=== PATIENT | female | born 1990 | race Hispanic/Latino ===

== ENCOUNTER 2018-02-26 10:45 | Emergency (ER) | payer MEDICAID ==
[2018-02-26 11:23] VITALS: BMI 31.5
--- NOTE | 2018-02-26 13:07 | US ---
PROCEDURE: HISTORY: LMP 06/05/2007 vaginal spotting COMPARISON: None TECHNIQUE: Transabdominal scanning of the maternal pelvis and a 2nd/ 3rd trimester with image documentation FINDINGS: Fetus: Single intrauterine gestation heart rate: Present at 134 beats per minute presentation: Cephalic Placenta: Anteriorwithout previa or abruption Amniotic fluid : Normal appearin.58 anatomy: Limited due to late gestation. biometrics: Gestational age by ultrasound: 36 weeks 3 days 2 weeks 4 days. Estimated date of delivery by ultrasound 03/23/2018 Estimated weight: 2980g 447 g Please note that the femur lengths are averaging approximately 32 weeks 4 days in contrast to the head circumference/BPD is of approximately 37 weeks 3 to 4 days and an abdominal circumference of 38 weeks 0 days. Correlation with parent height status recommended. Maternal factors: Uterus: Unremarkable. No myometrial masses Cervix:3.9 cm length Free fluid: None Biophysical profile: Breathin Gross body movements: 2 Limb tone: 2 Amniotic Fluid: 2 Total biophysical profile: 04/30 IMPRESSION: Single intrauterine gestation - 36 weeks 3 days 2 weeks 4 days. ; with normal cardiac activity. presentation - cephalic. No previa . Biophysical profile 04/30 Please note that the femur lengths are averaging approximately 32 weeks 4 days in contrast to the head circumference/BPD is of approximately 37 weeks 3 to 4 days and an abdominal circumference of 38 weeks 0 days. Correlation with parent height status recommended.
[2018-02-26 19:51] VITALS: BP 118/68; PULSE 97; O2SAT 99
--- NOTE | 2018-02-27 07:30 | OBHP ---
Datetime: 02/26/2018 11:37 IP Adm Impression: Term, intrauterine ; No Active Labor; Intact Membranes IP Admit Plan: Observation/Evaluation; Discharge home Admit Comment, IP Provider: 27 yo with IUP at 38.0 weeks present c/o blood clot that she not ice today at 4:00 am when she went to pee. Denies ctx, lof. +FM. Also states that around 9 am started with pinky vginal discharge that stoed on its own. Denies any urinary symptoms, abd pain. Patient re ports that back on Junuary she was told having palcenta previa, but last US yesterday she was told ev erything is fine. No complete records with her. PNC: Dr Pablo. OBH: x1 2009. MANAGER COLLECTION: denies std PMH: MTHFR gene mut. FMH: denies MEDS: ASA, Folic acid, PNV. NKDA. SH: denies. PE: see PE comments A/P:27 yo with IUP at 38.0 weeks with bloody discharge. -Observation/eavluation -BPP -/maternal monitoring. - Reeval: patients feels comfortable, denies abd pain or discharge at this time. BPP 8/8, no previa or abruption. - d/c home - ER precautions reviewed. Case seen and examined with Dr Jaimes. Jayson PGY 1. Patient was seen with the resident I agree with note Pelvic Type - PN: Adequate Extremities - PN: Normal Abdomen - PN: Normal Back - PN: Normal Breast - PN: Not Done Lungs - PN: Normal Heart - PN: Normal Thyroid - PN: Not Done Neurologic - PN: Normal HEENT - PN: Normal General - PN: Normal FHR - Baseline A Provider: 150 Membranes, Provider: Intact Contraction Comments Provider: quiet Comments, ACOG Physical Exam: SPECULUM: negative for bleeding, cervix closed. VE: cervix closed, long, no blood noted. EGA AdmitDate IP: 38.0 Vital Signs Provider: Reviewed; Within Normal Limits IP Chief Complaint: Vaginal bleeding NICHD Variability Prov Fetus A: Moderate 6-25bpm NICHD Accel Fetus A IP Provider: 15X15 FHR Category Provider Fetus A: Category I NICHD Decel Fetus A IP Provider: None Dilatation, Provider: 0 Effacement, Provider: 0 Station, Provider: -2 Genitourinary Exam: Normal DTRs - PN: Not Done (Annotations: Data stored by CPN on behalf of user)
== END 2018-02-26 13:45 | disposition home or self-care (01) ==
LOC: H.EROB2 10:45 → H.L&D 11:25 → H.EROB2 13:45
DX: O26.853 Spotting complicating pregnancy, third trimester (principal); Z3A.38 38 weeks gestation of pregnancy

== ENCOUNTER 2018-03-15 03:04 | Inpatient (IN) | payer MEDICAID ==
[2018-03-15 03:33] VITALS: BMI 31.8
[2018-03-15] MEDS ORDERED: Lactated Ringer's 1,000 ML IV SCH ×3 (03:45→09:00)
[2018-03-15] MEDS: Lactated Ringer's 1,000 ML IV SCH ×2 (03:45→04:45)
--- NOTE | 2018-03-15 03:45 | OBADHP ---
Datetime: 03/15/2018 03:33 Admit Comment, IP Provider: 27yo with IUP at 40.2 wks presents here today c/o SROM and contr action pain which started about 3 hours ago. Pelvic pain on a scale of 8/10. She denies any VB and fe els good movem,ents. PNC with the [facility][ O :Pt looks well Heart - RRR Chest: CTA B/L FHR - 130, regular [place]: Irregular Speculum Exam: Gross pooling, Nitrazine positive SVE: 3/50/-3, Vtx Assessment: IUP at Term, SROM GBS Negative. Active Labor Plan: Admit to LND Monitor the progress of labor. Pelvic Type - PN: Adequate Extremities - PN: Normal Abdomen - PN: Normal Back - PN: Normal Breast - PN: Normal Lungs - PN: Normal Heart - PN: Normal Thyroid - PN: Normal Neurologic - PN: Normal HEENT - PN: Normal General - PN: Normal Presentation-Admit: Vertex FHR - Baseline A Provider: 130 Membranes, Provider: Ki Charles ACOG Physical Exam: Abd: Soft, Nt , BS - present Speculum exam: Gross pooling, Nitrazine test - Positive Gestation - Est Wks by US: 40.2 Pool Provider: Positive Nitrazine Provider: Positive Vital Signs Provider: Reviewed IP Chief Complaint: Uterine contractions; Suspected ruptured membranes; Maternal discomfort NICHD Variability Prov Fetus A: Moderate 6-25bpm NICHD Accel Fetus A IP Provider: [id number] FHR Category Provider Fetus A: Category I NICHD Decel Fetus A IP Provider: None Dilatation, Provider: 3 Effacement, Provider: 50 Station, Provider: -2 Genitourinary Exam: Normal DTRs - PN: Normal EGA AdmitDate IP: 40.3 IP Adm Impression: Term, intrauterine ; Active labor; Ruptured Membranes IP Admit Plan: Admit to unit; Initiate labor protocol Datetime: 02/26/2018 11:37 Contraction Comments Provider: quiet
[2018-03-15 03:55] LABS: BASO # 0.1 K/uL (0.0-0.2); BASO % 0.9 % (0.0-2.0); EOS # 0.1 K/uL (0.0-0.7); EOS % 1.3 % (0.0-4.0); HEMOGLOBIN 12.1 g/dL (12.0-16.0); LYMPH # 2.6 K/uL (1.0-4.3); LYMPH % 31.3 % (20.0-40.0); MEAN CORPUSCULAR HEMOGLOBIN 31.8 pg (27.0-31.0); MEAN CORPUSCULAR HGB CONC 35.7 g/dL (33.0-37.0); MEAN PLATELET VOLUME 10.4 fl (7.2-11.7); MONO # 0.8 K/uL (0.0-0.8); NEUT # 4.9 K/uL (1.8-7.0); NEUT % 57.5 % (50.0-75.0); NRBC % 0.2 % (0.0-0.0); RBC 3.82 Mil/uL (3.80-5.20); RED CELL DISTRIBUTION WIDTH 12.7 % (11.5-14.5); WHITE BLOOD COUNT 8.5 K/uL (4.8-10.8)
[2018-03-15] MEDS ORDERED: Fentanyl/Bupivacaine HCl 250 ML EPI ONE (06:20)
[2018-03-15 06:30] VITALS: O2SAT 100
[2018-03-15] MEDS ORDERED: Oxytocin 30 units/LR 500ML 30 U/500 ML BAG IV ONE (08:52)
[2018-03-15] MEDS ORDERED: Oxycodone/Acetaminophen 5/325 mg Tab PO PRN (10:20)
[2018-03-15] MEDS ORDERED: Benzocaine/Menthol SPRAY TOP PRN (10:20)
--- NOTE | 2018-03-15 10:25 | OBDS ---
MATERNAL INFORMATION Delivery Anesthesia: Epidural Provider Comments: Pt was fully dilated and was pushing. A viable male with BW of 3405gms and scores of 9/9 was delivered over a small 2nd degree laceration at the posterior fauchette in t he DAT position. The laceration was repaired with good cosmesis. There was a loose nuchal cord X1. EBL - 250mls Patient tolerated the procedure well. LABOR SUMMARY EDC: 03/12/2018 00:00 No. Babies in Womb: 1 Attempted: No Labor Anesthesia: Epidural LABOR INFORMATION Reason for Induction: Not Applicable Onset of Labor: 03/14/2018 19:30 Complete Dilatation: 03/15/2018 09:10 Oxytocin: N/A Group B Beta Strep: Negative Antibiotics # of Doses: 0 Antibiotics Time of Last Dose: 0 Steroids Given: None Reason Steroids Not Administered: Not Applicable MEMBRANES Membranes Rupture Method: Spontaneous Rupture of Membranes: 03/14/2018 19:30 Amniotic Fluid Color: Clear Amniotic Fluid Amount: Moderate Amniotic Fluid Odor: Normal STAGES OF LABOR Stage 1 hrs: 13 Stage 1 min: 40 VAGINAL DELIVERY Episiotomy: None Laceration Extension: Second Degree Laceration Type: Perineal Sponge Count Correct: Yes Sharps Count Correct: Yes PRESENTATION/POSITION BABY A Presentation: Cephalic IDENTIFICATION/MEDS BABY A ID Band Number: [id number]
[2018-03-16 07:26] LABS: HEMOGLOBIN 9.9 g/dL (12.0-16.0); MEAN CORPUSCULAR HEMOGLOBIN 31.7 pg (27.0-31.0); MEAN CORPUSCULAR HGB CONC 34.8 g/dL (33.0-37.0); RBC 3.12 Mil/uL (3.80-5.20); WHITE BLOOD COUNT 9.8 K/uL (4.8-10.8)
[2018-03-16] MEDS: Multivitamin With Minerals Tab PO SCH (09:18)
--- NOTE | 2018-03-16 10:36 | OBPPN ---
Datetime: 03/16/2018 09:48 PP Pain Prov: Within normal limits PP Nausea Prov: Denies PP Flatus Prov: Yes PP BM Prov: No PP Impression Prov: Normal progression PP Plan Prov: Continue present management PP Progress Note Prov: S: 27 y/o female s/p on 03/15/18 evaluated on PPD1. Pt was seen and examined at bedside this AM. No overnight events. Reports mild abdominal pain, but well controll ed with pain meds. Ambulating. Breast feeding (with formula supplementation) without difficulty. [place] is similar to menses volume. +Flatus/-BM. Denies fever/chills, diarrhea, nausea/vomiting, chest p ain, dyspnea, and dizziness. Pt desires circumcision for baby. O: Vitals stable overnight, 1 episodes of tachycardia HR 100's associated w/ pain GEN: NAD Cardio: S1S2, no murmurs Lungs: clear breath sounds b/l, no wheezing Abdomen: BS+, appropriate tenderness to palpation. Uterus is firm and at the level of the umbilic us. EXT: No edema, calves nontender NEURO/PSYCH: AAOx3, no grossly focal deficits, preserved affect and mood. H/H (post ): 9.9/28.4 Assessment/Plan: 27 y/o female s/p on 03/15/18, doing well on PPD 1 . Pt remains afe brile, tolerating pain with medication. Tolerating diet. Asymptomatic anemia. Pt agreeable for MMR va ccine. Anticipating d/c on 03/17. Continue with current management Encourage and ambulating Ibuprofen 600mg q6 and Percocet 1 tablet 5-325mg prn for pain for pain [place] and Colace daily Dermoplast prn Multivitamin daily MMR ordered Cuca,PGY1. Attending Note: Pt was seen and examined with resident and I agree with the above note. Benson Pitts MD. Vital Signs Provider PP: Reviewed; Within Normal Limits
[2018-03-17] MEDS: Multivitamin With Minerals Tab PO SCH (08:27)
[2018-03-17] MEDS ORDERED: Measles, Mumps, and Rubella 0.5 ML VIAL SC ONE ×2 (09:00→10:00)
--- NOTE | 2018-03-17 11:11 | OBPPN ---
Datetime: 03/17/2018 05:51 PP Pain Prov: Within normal limits PP Nausea Prov: Denies PP Flatus Prov: Yes PP BM Prov: No PP Heart Prov: Normal PP Lungs Prov: Normal PP Abdomen/Uterus Prov: Normal PP Lochia Prov: Normal PP Extremities Prov: Normal PP C/S Incision Prov: Not Applicable PP Progress Prov: Normal PP Impression Prov: Normal progression PP Plan Prov: Discharge PP Progress Note Prov: Patient seen and examined this morning at bedside. Mild abdominal pain but we ll controlled with pain medicines. Voiding w/o any difficulties, tolerating PO intake and reports goo d progression with formula supplementation. No BM yet but passing gas per rectum. Denie s chest pain, dyspnea, nausea, vomiting, and calf pain. VSS, afebrile Gen: awake, no acute distress Resp: cta b/l CV: normal S1S2, RRR Abd: soft, +BS, appropriated tenderness, firm fundus below umbilicus. Ext: no edema, no calf tenderness Neuro/psych: AAOx3, no gross deficits, preserved mood and affect A/P: 27 yo , s/p NVD on 03/15/18 doing well on PPD 2. -Normal progression -c/w pain management -Encourage ambulation and -pp H/H 9.9/28.4 -MMR vaccine -Discharge home today -Patient is aware and all the questions were answered YBecerra PGY-[address] Murphy: I have evaluated the patient independently and I agree with the above IP PP Procedures: Rubella Vital Signs Provider PP: Reviewed; Within Normal Limits
--- NOTE | 2018-03-17 11:11 | OBDCSUM ---
Datetime: 03/17/2018 05:54 Discharged to, Provider: Home Follow up at, Provider: Dr Morgan Disch Instr Activity: Normal activity Disch Instr Diet: Regular Discharge Instructions, Provider: Routine instructions given Discharge Diagnosis, Provider: Term Delivered Discharge Time: 03/17/2018 10:00 Follow up in weeks, Provider: 6 weeks Disch Referrals: None Contraception discussed, Prov: Yes Disch Activity Restrictions: No lifting; Minimize stair-climbing; No sexual activity; Nothing in vag homer - [place], tampons, douche Discharge Comment, Provider: EGA: 40.2 weeks Diagnosis: RF: none DOL: 03/15/18 at 09:59 NB: M : 9/9 Weight: 3405 g PP summary: No serious complications during PP. Lochia= menses, mild pain, controlled with medicat ions. Rubella: not immune. MMR given. Blood type: O+ CBC pp: .06/20.4 Discharge Date: 03/17/2018 at 10 am Discharge Instructions: -encourage -Ibuprofen for pain PRN -Colace BID for constipation -Ambulate as tolerated -f/u NB visit and PP visit Contraception after Delivery: Undecided
[2018-03-17 17:53] VITALS: BP 125/78; PULSE 85; RESP 20; TEMP 98.1
== END 2018-03-17 12:12 | disposition home or self-care (01) | DRG 373 ==
LOC: H.EROB2 03:04 → H.L&D 03:33 → H.OB/GYN 12:42
PROVIDERS: ADMIT Obstetrics & Gynecology; ATTEND Obstetrics & Gynecology
PROC: 10E0XZZ Delivery of Products of Conception, External Approach (ICD-10-PCS; principal; 2018-03-15)
PROC: 0KQM0ZZ Repair Perineum Muscle, Open Approach (ICD-10-PCS; 2018-03-15)
PROC: 4A1HXCZ Monitoring of Products of Conception, Cardiac Rate, External Approach (ICD-10-PCS; 2018-03-15)
DX: O48.0 Post-term pregnancy (principal); O70.1 Second degree perineal laceration during delivery; O69.81X0 Labor and delivery complicated by cord around neck, without compression, not applicable or unspecified; Z3A.40 40 weeks gestation of pregnancy; Z37.0 Single live birth